=== PATIENT | male | born 1980 | race Caucasian/White ===

== ENCOUNTER 2023-03-24 14:18 | Emergency (ER) | payer OTHER, SELFPAY ==
[2023-03-24 14:26] VITALS: BP 144/93; PULSE 97; RESP 20; TEMP 36.9; O2SAT 96; BMI 26.5
[2023-03-24 14:54] VITALS: PULSE 80; RESP 20; TEMP 36.8; O2SAT 100
--- NOTE | 2023-03-24 14:59 | ED_ITS ---
HPI - Medical Clearance General Chief complaint: Medical Clearance Stated complaint: CLEARANCE FOR LEGENDS Time Seen by Provider: 03/24/23 14:53 Source: patient Mode of arrival: walk-in Limitations: no limitations History of Present Illness HPI Narrative: 42-year-old male presents for medical clearance. He doesn't seem to have any physical complaints except that he is intoxicated. He was going to an alcohol treatment center today but he was too intoxicated to be admitted there is so he was sent here from there. He has no physical complaints such as headache fever cough or abdominal pain. He states he has an alcohol problem and wants to get help. He drinks alcohol heavily every day. Related Information Allergies Allergy/AdvReac Type Severity Reaction Status Date / Time No Known Drug Allergies Allergy Verified 03/24/23 14:29 Review of Systems ROS Narrative not obtainable, belligerent PFSH PFSH Social History Smoking status: Heavy tobacco smoker Exam Narrative Exam Narrative: Nurses note and vital signs reviewed and patient is not hypoxic. General: The patient appears well and in no apparent distress. Patient is resting comfortably on cart. Skin: Warm, dry, no pallor noted. There is no rash noted. Head: Normocephalic, atraumatic Eye: Normal conjunctiva, no drainage Ears, Nose, Mouth, and Throat: oral mucosa is moist. Nares patent. Cardiovascular: Regular Rate and Rhythm Respiratory: Patient is in no distress, no accessory muscle use GI: would not allow examination Musculoskeletal: he is ambulatory Neurological: speech is somewhat slurred. He is oriented Psychiatric: uncooperative and belligerent Constitutional Vital Signs, click to edit/add: Last Vital Signs Temp 98.3 F 03/24/23 14:54 Pulse 80 03/24/23 14:54 Resp 20 03/24/23 14:54 BP 144/93 H 03/24/23 14:26 Pulse Ox 100 03/24/23 14:54 O2 Del Method Room Air 03/24/23 14:54 Course Vital Signs Vital signs: Vital Signs Temperature 98.4 F 03/24/23 14:26 Pulse Rate 97 H 03/24/23 14:26 Respiratory Rate 20 03/24/23 14:26 Blood Pressure 144/93 H 03/24/23 14:26 Pulse Oximetry 96 03/24/23 14:26 Oxygen Delivery Method Room Air 03/24/23 14:26 Temperature 98.3 F 03/24/23 14:54 Pulse Rate 80 03/24/23 14:54 Respiratory Rate 20 03/24/23 14:54 Blood Pressure 144/93 H 03/24/23 14:26 Pulse Oximetry 100 03/24/23 14:54 Oxygen Delivery Method Room Air 03/24/23 14:54 MDM - Medical Clearance MDM Narrative Medical decision making narrative: alcohol level is 315. he is medically cleared and is being discharged. The treating facility reported that they can take him if his alcohol level is below three hundred. Throughout his stay in the emergency department he was belligerent and not cooperative and wouldn't stay in his room. He was argumentative and disrespectful towards the staff including myself. At one point security and then [place] police were necessarily called. Differential Diagnosis Differential diagnosis: Likely other (alcohol abuse, alcohol intoxication) Lab Data Attestation: I reviewed the patient's lab results. Labs: Lab Results 03/24/23 Range/Units 15:07 WBC 6.9 (4.0-11.0) 10^3/uL RBC 5.16 (4.70-6.10) 10^6/uL Hgb 15.3 (14.0-18.0) g/dL Hct 45.9 (42.0-54.0) % MCV 89.0 (80.0-94.0) fL MCH 29.7 (25.9-34.0) pg MCHC 33.3 (29.9-35.2) g/dL RDW 13.2 (11.0-15.0) % Plt Count 203 (150-450) 10^3/uL MPV 10.5 (9.5-13.5) fL Neut % (Auto) 58.6 (43.0-75.0) % Lymph % (Auto) 34.6 (20.5-60.0) % [place] % (Auto) 5.1 (1.7-12.0) % Eos % (Auto) 0.7 L (0.9-7.0) % Baso % (Auto) 0.7 (0.2-2.0) % Neut # (Auto) 4.0 (1.4-6.5) 10^3/uL Lymph # (Auto) 2.4 (1.2-3.8) 10^3/uL [place] # (Auto) 0.4 (0.3-0.8) 10^3/uL Eos # (Auto) 0.1 (0.0-0.7) 10^3/uL Baso # (Auto) 0.1 (0.0-0.1) 10^3/uL Abs Immat Gran (auto) 0.02 (0.00-0.03) 10^3/uL Imm/Tot Granulo (auto) 0.3 (0.0-0.5) % Sodium 143 (136-145) mmol/L Potassium 3.9 (3.5-5.1) mmol/L Chloride 106 (98-107) mmol/L Carbon Dioxide 26.3 (21.0-32.0) mmol/L Anion Gap 14.6 BUN 12.0 (7.0-18.0) mg/dL Creatinine 0.76 (0.70-1.30) mg/dL Est GFR ( Amer) >60 (>=60) Est GFR (Non-Af Amer) >60 (>=60) BUN/Creatinine Ratio 15.8 Glucose 119 H (74-106) mg/dL Calcium 9.6 (8.5-10.1) mg/dL Ethanol Quant 315 mg/dL Discharge Plan Discharge Chief Complaint: Medical Clearance Clinical Impression: Alcohol abuse, Alcohol intoxication Patient Disposition: Home, Self-Care Time of Disposition Decision: 18:11 Condition: Good Mode of Transportation: Private Vehicle Instructions: Alcohol Intoxication (ED), Abuse of Alcohol (ED), Alcohol Use Disorder (ED) Stand Alone Forms: Portal Instructions Referrals: Physician,Non-Staff, MD [Primary Care Provider] - 1 week
--- NOTE | 2023-03-24 15:05 | PC.NURSE ---
During assessment patient becomes verbally aggressive and jumps off bed, Dr. Cota and this nurse leave room, call placed to [employer] [place] police department
--- NOTE | 2023-03-24 15:06 | PC.NURSE ---
The [place] police department here at this time
[2023-03-24 15:13] LABS: Basophils Absolute Auto 0.1 10^3/uL (0.0-0.1); Basophils Percent Auto 0.7 % (0.2-2.0); Eosinophils Absolute Auto 0.1 10^3/uL (0.0-0.7); Eosinophils Percent Auto 0.7 % (0.9-7.0); Hematocrit 45.9 % (42.0-54.0); Hemoglobin 15.3 g/dL (14.0-18.0); Immature Granulocytes Abs Auto 0.02 10^3/uL (0.00-0.03); Immature Granulocytes Pct Auto 0.3 % (0.0-0.5); Lymphocytes Absolute Auto 2.4 10^3/uL (1.2-3.8); Lymphocytes Percent Auto 34.6 % (20.5-60.0); Mean Corpuscular HGB Conc 33.3 g/dL (29.9-35.2); Mean Corpuscular Hemoglobin 29.7 pg (25.9-34.0); Mean Platelet Volume 10.5 fL (9.5-13.5); Monocytes Absolute Auto 0.4 10^3/uL (0.3-0.8); Monocytes Percent Auto 5.1 % (1.7-12.0); Neutrophils Percent Auto 58.6 % (43.0-75.0); Platelet Count 203 10^3/uL (150-450); Red Blood Count 5.16 10^6/uL (4.70-6.10); Red Cell Distribution Width 13.2 % (11.0-15.0); White Blood Count 6.9 10^3/uL (4.0-11.0)
[2023-03-24] MEDS: 0.9 % SODIUM CHLORIDE 1,000 ML 1000 ML IV (15:32)
[2023-03-24 15:35] LABS: Anion Gap 14.6; BUN Creatinine Ratio 15.8; Calcium 9.6 mg/dL (8.5-10.1); Carbon Dioxide 26.3 mmol/L (21.0-32.0); Chloride 106 mmol/L (98-107); Estimated GFR (African America >60 (>=60); Estimated GFR (Non-African Ame >60 (>=60); Ethanol 315 mg/dL; Glucose 119 mg/dL (74-106); Potassium 3.9 mmol/L (3.5-5.1); Sodium 143 mmol/L (136-145)
--- NOTE | 2023-03-24 15:37 | PC.NURSE ---
Patient receiving IV fluids at this time. [facility] department leaving at this time
--- NOTE | 2023-03-24 16:15 | PC.NURSE ---
Vargas from [facility] calls to check on patient; Vargas relays patient can come to facility when blood alcohol is 300 or less.
--- NOTE | 2023-03-24 17:02 | PC.NURSE ---
Resting on cot with eyes closed, respirations even and non labored
--- NOTE | 2023-03-24 17:57 | PC.NURSE ---
IV discontinued at this time as patient is going in and out of room and trying to go outside to smoke. Security notified.
== END 2023-03-24 18:37 | disposition home or self-care (01) ==
PROVIDERS: Emergency Provider Emergency Medicine
DX: F10.129 Alcohol abuse with intoxication, unspecified (principal); F17.210 Nicotine dependence, cigarettes, uncomplicated; Y90.8 Blood alcohol level of 240 mg/100 ml or more
CPT/HCPCS: 36415; 80048; 80307; 80320; 81001; 85025; 99284